=== PATIENT | female | born 1945 | race Caucasian/White ===

== ENCOUNTER 2018-01-14 11:49 | Emergency (ER) | payer MEDICARE, BC ==
[2018-01-14] MEDS ORDERED: Sodium Chloride 0.9% 1,000 ML IV SCH (12:00)
--- NOTE | 2018-01-14 12:06 | EDM.PDOC ---
ED HPI GENERAL MEDICAL PROBLEM - General Stated Complaint: LIGHTHEADED Time Seen by Provider: 01/14/18 11:49 Source of Information: Reports: Patient History Limitations: Reports: No Limitations - History of Present Illness INITIAL COMMENTS - FREE TEXT/NARRATIVE: c/o near syncope pt with L TKR 1w ago, went to PT today, became diaphoretic and lightheaded, put in a w/c and felt better, went to bathroom, became diaphoretic again and brought here SBP 80 as per PT pt states she has been taking her BP med daily rather than 4x/mo as usual PCP Dr Andrews for past 30y feeling fine now, no n/v, no cp, no sob has cool compress on forehead, skin dry ED ROS GENERAL - Review of Systems Review Of Systems: See Below Constitutional: Reports: Weakness, Diaphoresis HEENT: Reports: No Symptoms Respiratory: Reports: No Symptoms. Denies: Shortness of Breath Cardiovascular: Reports: No Symptoms. Denies: Chest Pain Endocrine: Reports: No Symptoms GI/Abdominal: Reports: No Symptoms. Denies: Abdominal Pain, Diarrhea, Nausea, Vomiting : Reports: No Symptoms Musculoskeletal: Reports: No Symptoms Skin: Reports: No Symptoms Neurological: Reports: Other (lightheaded. dizzy) Psychiatric: Reports: No Symptoms Hematologic/Lymphatic: Reports: No Symptoms Immunologic: Reports: No Symptoms - Physical Exam Exam: See Below Exam Limited By: No Limitations General Appearance: Alert, WD/WN, No Apparent Distress, Other (sitting in w/c, alert, pleasant, NAD) Ears: Normal External Exam Nose: Normal Inspection, Normal Mucosa, No Blood Throat/Mouth: Normal Inspection, Normal Lips Head Exam: Atraumatic, Normocephalic Neck: Normal Inspection, Supple, Non-Tender, Full Range of Motion Respiratory/Chest: No Respiratory Distress, Lungs Clear, Normal Breath Sounds, No Accessory Muscle Use, Chest Non-Tender Cardiovascular: Regular Rate, Rhythm, No Edema, No Gallop, No JVD, No Rub, Other (2/6 RAMON at LSB, quiet precordium) GI/Abdominal: Soft, Non-Tender, No Distention Neuro Exam (Abbreviated): Alert, Oriented, CN II-XII Intact, Normal Cognition, No Motor/Sensory Deficits Back Exam: Normal Inspection, Full Range of Motion, NT Extremities: Normal Inspection, Normal Range of Motion, Non-Tender, No Pedal Edema, Normal Capillary Refill Psychiatric: Normal Affect Skin Exam: Warm, Dry, Intact, Normal Color, No Rash, Other (dec'd turgor UEs, no tenting) Course - Orders/Labs/Meds Orders: Active Orders 24 hr Category Date Time Status UA W/MICROSCOPIC [URIN] Stat Lab 01/14/18 13:50 Received Sodium Chloride 0.9% [Normal Saline] 1,000 ml Med 01/14/18 12:00 Active IV ASDIRECTED EKG 12 Lead [EK] Routine Ther 01/14/18 11:59 Ordered Medication Orders Sodium Chloride (Normal Saline) 1,000 mls @ 999 mls/hr IV ASDIRECTED BRIGIDA Labs: Laboratory Tests 01/14/18 01/14/18 01/14/18 Range/Units 12:15 12:15 12:15 WBC 9.4 (4.5-12.0) X10-3/uL RBC 4.36 (3.23-5.20) x10(6)uL Hgb 11.5 (11.5-15.5) g/dL Hct 35.3 (30.0-51.3) % MCV 80.9 (80-96) fL MCH 26.4 L (27.7-33.6) pg MCHC 32.7 (32.2-35.4) g/dL RDW 14.1 (11.5-15.5) % Plt Count 518 H (125-369) X10(3)uL MPV 7.7 (7.4-10.4) fL Neut % (Auto) 73.2 (46-82) % Lymph % (Auto) 17.2 (13-37) % [place] % (Auto) 7.0 (4-12) % Eos % (Auto) 2 (1.0-5.0) % Baso % (Auto) 1 (0-2) % Neut # (Auto) 6.8 (1.6-8.3) # Lymph # (Auto) 1.6 (0.6-5.0) # [place] # (Auto) 0.7 (0.0-1.3) # Eos # (Auto) 0.2 (0.0-0.8) # Baso # (Auto) 0.1 (0.0-0.2) # Sodium 135 (135-145) mmol/L Potassium 3.7 (3.5-5.3) mmol/L Chloride 98 L (100-110) mmol/L Carbon Dioxide 27 (21-32) mmol/L BUN 15 (7-18) mg/dL Creatinine 1.3 H (0.55-1.02) mg/dL Est Cr Clr Drug Dosing TNP Estimated GFR (MDRD) 40 L (>60) BUN/Creatinine Ratio 11.5 (9-20) Glucose 136 H (80-116) mg/dL Calcium 8.7 (8.6-10.2) mg/dL Total Bilirubin 0.7 (0.1-1.3) mg/dL AST 60 H (5-25) IU/L ALT 63 H (12-36) U/L Alkaline Phosphatase 109 (56-112) IU/L Troponin I < 0.017 L (<0.017-0.056) ng/mL C-Reactive Protein 2.8 H* (0.5-0.9) mg/dL Total Protein 8.0 (6.0-8.0) g/dL Albumin 3.3 (3.2-4.6) g/dL Globulin 4.7 g/dL Albumin/Globulin Ratio 0.7 Meds: Medications Generic Name Dose Route Start Last Admin Trade Name Freq PRN Reason Stop Dose Admin Sodium Chloride 1,000 mls @ 999 mls/hr 01/14/18 12:00 Normal Saline IV ASDIRECTED BRIGIDA - Re-Assessments/Exams Free Text/Narrative Re-Assessment/Exam: 01/14/18 14:12 pt has been on lisinopril 20 mg 1/2 tab for years but rarely takes it daily, she was given HCTZ 25 mg daily as well when she went in for her preop for her knee creat 1.3 today, no comparison is feeling fine after 1 liter of fluids at home, comes to hospital for PT for her knee pt currently splits lisinopril, will also have her split the HCTZ 25 mg and f/u with PCP in 3-4 days Departure - Departure Time of Disposition: 14:14 Disposition: Home, Self-Care 01 Condition: Good Clinical Impression: Hypotension, Elevated serum creatinine - Discharge Information *PRESCRIPTION DRUG MONITORING PROGRAM REVIEWED*: Not Applicable *COPY OF PRESCRIPTION DRUG MONITORING REPORT IN PATIENT LITA: Not Applicable Instructions: Hypotension Referrals: Omar Alcala MD [Primary Care Provider] - Additional Instructions: Continue current meds. However, take 1/2 tab of the HCTZ 25 mg daily (rather than a whole tab). Continue rehab. See Dr Andrews in 3-4 days. Follow up with surgeon as scheduled. Call your Physician or Return to Emergency Department if: * Your condition worsens in any way. * You develop fever greater than 100.4. * You have vomitting that does not stop with medications. * You have pain that is not controlled with medications. - My Orders Last 24 Hours: My Active Orders 01/14/18 11:59 EKG 12 Lead [EK] Routine 01/14/18 12:00 Sodium Chloride 0.9% [Normal Saline] 1,000 ml IV ASDIRECTED 01/14/18 13:50 UA W/MICROSCOPIC [URIN] Stat - Assessment/Plan Last 24 Hours: My Active Orders 01/14/18 11:59 EKG 12 Lead [EK] Routine 01/14/18 12:00 Sodium Chloride 0.9% [Normal Saline] 1,000 ml IV ASDIRECTED 01/14/18 13:50 UA W/MICROSCOPIC [URIN] Stat
== END 2018-01-14 14:30 | disposition home or self-care (01) ==
LOC: FB.ED 11:49
DX: I95.9 Hypotension, unspecified (principal); R79.89 Other specified abnormal findings of blood chemistry
CPT/HCPCS: 36415; 80053; 81001; 84484; 85025; 86140; 93005; 96360; 99285; J7030

== ENCOUNTER 2019-04-15 15:05 | Emergency (ER) | payer MEDICARE, BC ==
[2019-04-15] MEDS ORDERED: FLU Vacc QS2019-20(6MOS+)/PF 60 MCG/0.5 ML SYRINGE IM ONE (16:00)
--- NOTE | 2019-04-15 16:14 | EDM.PDOC ---
ED HPI GENERAL MEDICAL PROBLEM - General Chief Complaint: Gastrointestinal Problem Stated Complaint: HYPERVOLEMIC, VOMITTING Time Seen by Provider: 04/15/19 16:00 Source of Information: Reports: Patient History Limitations: Reports: No Limitations - History of Present Illness INITIAL COMMENTS - FREE TEXT/NARRATIVE: 74-year-old female who had onset of diarrhea on 04/11/2019. She has really had no discomfort. She has had no weakness or dizziness. She has had about 5-6 diarrhea stools per day. They have been Aleisha. She has had really no abdominal cramping or nausea associated with these episodes of diarrhea. She did take Imodium for her diarrhea today and she presented to the walk-in clinic today for evaluation because she is kneeling on going out of town and back to [place] area were she has an apartment. While she was in the walk-in clinic, she used a facemask is to begin to feel stifled with this and then begin to feel some nausea and lightheadedness and she had multiple episodes of vomiting at that point that was somewhat bilious and was noted by the walk-in clinic staff to have her sugar in the 90 systolic range and they brought her over here to the emergency department for evaluation. By the time she arrives here, she states she feels mostly back to normal. She has no more nausea. Her blood pressure is in the 110 systolic range. Feel somewhat thirsty and she is asking for crackers. She does have some pain in her right shoulder that she states she has had ongoing for quite some time and beginning in the fall of this year she has had fairly continual pain in her right shoulder that seems to be worse with certain positions and she is currently rating the pain as about 7-8/10. It is an aching and throbbing pain and it is no different than she normally has only just a bit worse uncomfortable because of the position that she is in because she is lying flat. No fevers or chills. No dysuria or hematuria. No cough or nasal congestion. No sore throat. There are no other associated signs or symptoms. There are no other modifying factors. Onset: Other (Ongoing for the past) Duration: Constant Location: Reports: Upper Extremity, Right (Shoulder) Quality: Reports: Ache Severity: Moderate Improves with: Reports: Rest, Other (Relieved in certain positions.) Worsens with: Reports: Other (Palpation. Certain positions.), Movement Context: Reports: Other (As above) Associated Symptoms: Reports: No Other Symptoms (Except as above) Treatments SIMONIZER: Reports: Other Medication(s) (Imodium 2 capsules earlier today) Right Shoulder Pain Score (Numeric/FACES): 4 - Related Data Allergies Allergy/AdvReac Type Severity Reaction Status Date / Time Bleach (Sodium Hypochlorite) Allergy Rash Verified 04/15/19 15:40 latex Allergy Rash Verified 04/15/19 15:40 Home Meds: Home Meds Lisinopril 10 mg PO DAILY 01/14/18 [History] hydroCHLOROthiazide [Hydrochlorothiazide] 25 mg PO DAILY 01/14/18 [History] Past Medical History HEENT History: Reports: Other (See Below) Other HEENT History: 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 Cardiovascular History: Reports: Hypertension - Infectious Disease History Infectious Disease History: Reports: Chicken Pox - Past Surgical History HEENT Surgical History: Reports: Eye Surgery, Oral Surgery, Tonsillectomy GI Surgical History: Reports: Bariatric Procedure (Gastric bypass), Cholecystectomy, Colonoscopy Female Surgical History: Reports: Hysterectomy Musculoskeletal Surgical History: Reports: Knee Replacement (Left) Social & Family History - Tobacco Use Smoking Status *Q: Never Smoker Second Hand Smoke Exposure: No - Caffeine Use Caffeine Use: Reports: Coffee - Alcohol Use Days Per Week of Alcohol Use: 1 Number of Drinks Per Day: 0 Total Drinks Per Week: 0 Alcohol Use Frequency: Weekly - Recreational Drug Use Recreational Drug Use: No - Living Situation & Occupation Living situation: Reports: Occupation: Retired ED ROS GENERAL - Review of Systems Review Of Systems: See Below Constitutional: Reports: Malaise HEENT: Reports: Other (Somewhat dry mouth) Respiratory: Reports: No Symptoms Cardiovascular: Reports: Lightheadedness (After episode today while she was in the walk-in clinic area). Denies: Chest Pain Endocrine: Reports: No Symptoms GI/Abdominal: Reports: Diarrhea, Vomiting : Reports: No Symptoms Musculoskeletal: Reports: No Symptoms Skin: Reports: No Symptoms Neurological: Reports: No Symptoms, Other (Near syncope with this episode today) Hematologic/Lymphatic: Reports: No Symptoms Immunologic: Reports: No Symptoms ED EXAM, GENERAL - Physical Exam Exam: See Below Exam Limited By: No Limitations General Appearance: Alert, No Apparent Distress, Obese Eye Exam: Bilateral Eye: EOMI, Normal Inspection, PERRL Ears: Normal External Exam, Hearing Grossly Normal Ear Exam: Bilateral Ear: Auricle Normal Nose: Normal Inspection, Normal Mucosa, No Blood Throat/Mouth: Normal Voice, No Airway Compromise, Other (Dry mucous membranes. No posterior pharyngeal erythema.) Head: Atraumatic, Normocephalic Neck: Normal Inspection, Supple, Non-Tender, Full Range of Motion Respiratory/Chest: No Respiratory Distress, Lungs Clear, Normal Breath Sounds, No Accessory Muscle Use, Chest Non-Tender Cardiovascular: Normal Peripheral Pulses, Regular Rate, Rhythm, No JVD, No Murmur Peripheral Pulses: 2+: Radial (L), Radial (R), Dorsalis Pedis (L), Dorsalis Pedis (R) GI/Abdominal: Normal Bowel Sounds, Soft, Non-Tender, No Mass Back Exam: Normal Inspection. No: CVA Tenderness (R), CVA Tenderness (L) Extremities: Normal Inspection, Normal Range of Motion, Non-Tender, No Pedal Edema, Normal Capillary Refill Neurological: Alert, Oriented, CN II-XII Intact, Normal Cognition, No Motor/ Sensory Deficits Skin Exam: Warm, Dry, Intact, Normal Color, No Rash Course - Vital Signs Last Recorded V/S: Last Vital Signs Temp 36.1 C 04/15/19 15:40 Pulse 66 04/15/19 15:40 Resp 18 04/15/19 15:40 BP 100/55 L 04/15/19 15:40 Pulse Ox 97 04/15/19 15:40 Orthostatic Blood Pressure [ 138/71 Standing] Orthostatic Blood Pressure [ 130/69 Sitting] Orthostatic Blood Pressure [ 152/71 Supine] - Orders/Labs/Meds Orders: Active Orders 24 hr Category Date Time Status Influenza Vaccine Charge [RC] .DISCHARGE Care 04/15/19 15:51 Active Orthostatic Vital Signs [RC] ONETIME Care 04/15/19 17:09 Active Peripheral IV Insertion Adult [OM.PC] Routine Oth 04/15/19 16:21 Ordered Labs: Laboratory Tests 04/15/19 04/15/19 Range/Units 16:45 16:45 WBC 12.0 (4.5-12.0) X10-3/uL RBC 4.83 (3.23-5.20) x10(6)uL Hgb 12.4 (11.5-15.5) g/dL Hct 38.3 (30.0-51.3) % MCV 79.3 L (80-96) fL MCH 25.8 L (27.7-33.6) pg MCHC 32.5 (32.2-35.4) g/dL RDW 13.9 (11.5-15.5) % Plt Count 377 H (125-369) X10(3)uL MPV 7.7 (7.4-10.4) fL Add Manual Diff Yes Neutrophils % (Manual) 90 H (46-82) % Lymphocytes % (Manual) 6 L (13-37) % Monocytes % (Manual) 3 L (4-12) % Eosinophils % (Manual) 1 (0-5) % Sodium 139 (135-145) mmol/L Potassium 3.8 (3.5-5.3) mmol/L Chloride 102 (100-110) mmol/L Carbon Dioxide 28 (21-32) mmol/L BUN 14 (7-18) mg/dL Creatinine 1.4 H (0.55-1.02) mg/dL Est Cr Clr Drug Dosing 28.31 mL/min Estimated GFR (MDRD) 37 L (>60) BUN/Creatinine Ratio 10.0 (9-20) Glucose 111 (80-116) mg/dL Calcium 8.7 (8.6-10.2) mg/dL Magnesium 1.9 (1.8-2.5) mg/dL Total Bilirubin 0.4 (0.1-1.3) mg/dL AST 18 D (5-25) IU/L ALT 17 D (12-36) U/L Alkaline Phosphatase 96 (56-112) IU/L Total Protein 7.7 (6.0-8.0) g/dL Albumin 3.5 (3.2-4.6) g/dL Globulin 4.2 g/dL Albumin/Globulin Ratio 0.8 Meds: Medications Discontinued Medications Generic Name Dose Route Start Last Admin Trade Name Freq PRN Reason Stop Dose Admin Acetaminophen 1,000 mg 04/15/19 16:21 04/15/19 16:35 Tylenol Extra Strength PO 04/15/19 16:22 1,000 mg ONETIME ONE Administration Sodium Chloride 1,000 mls @ 999 mls/hr 04/15/19 16:21 04/15/19 16:29 Normal Saline IV 04/15/19 17:21 999 mls/hr .BOLUS ONE Administration Sodium Chloride 1,000 mls @ 150 mls/hr 04/15/19 16:30 Normal Saline IV ASDIRECTED [facility] Influenza Virus Vaccine 60 mcg 04/15/19 16:00 04/15/19 19:37 Fluzone Quad [id number] Syringe IM 04/15/19 16:01 Not Given .ONCE ONE Sodium Chloride 10 ml 04/15/19 16:21 Saline Flush FLUSH ASDIRECTED PRN Keep Vein Open - Re-Assessments/Exams Free Text/Narrative Re-Assessment/Exam: 04/15/19 18:00: Patient's orthostatic vital signs were normal. Patient has received 1 L of normal saline IV. Patient with no further diarrhea. Her lab tests are reassuring. She is thirsty and would like some crackers. I will plan on giving the patient a PO challenge and if she tolerates this, she will be discharged. 04/15/19 18:50: Patient has tolerated liquids and the crackers well. She has no nausea. She still has had no further stools. She feels much improved. I suspect that she had a vagal episode in the walk-in clinic and that was the cause of her transient hypotension and vomiting. The patient is stable and ready for discharge. Departure - Departure Time of Disposition: 19:00 Disposition: Home, Self-Care 01 Condition: Good (Improved) Clinical Impression: Dehydration, Vasovagal episode Diarrhea Qualifiers: Diarrhea type: unspecified type Qualified Code(s): R19.7 - Diarrhea, unspecified - Discharge Information Instructions: Dehydration, Adult, [id number], Diarrhea, Adult, [id number] Referrals: Omar Alcala MD [Primary Care Provider] - Forms: ED Department Discharge Additional Instructions: Your blood tests were reassuring and essentially unchanged from previous. You did appear to be somewhat dehydrated and we corrected this with the IV fluids. The episode of low blood pressure and vomiting that you had in the walk-in clinic was most probably secondary to what is called a vasovagal episode or a near pass out spell did to you wearing the mask. You should rest. Drink plenty of fluids. Avoid milk for the next 2-3 days. Take probiotics ([id number]) daily for about the next week. You may take treats loose stool up to 4 doses in the 24 hour period. You may take Tylenol 1000 mg by mouth every 6 hours as needed for pain. Activity emergency department for unrelenting vomiting, high fever, worsening diarrhea, inability to take liquids, weakness or dizziness or any other concerning sign or symptom. Sepsis Event Note - Evaluation Sepsis Screening Result: No Definite Risk - Focused Exam Vital Signs: Vital Signs Temp Pulse Resp BP Pulse Ox 04/15/19 15:40 36.1 C 66 18 100/55 L 97 Date Exam was Performed: 04/15/19 Time Exam was Performed: 23:38 - My Orders Last 24 Hours: My Active Orders 04/15/19 15:51 Influenza Vaccine Charge [RC] .DISCHARGE 04/15/19 16:21 Peripheral IV Insertion Adult [OM.PC] Routine 04/15/19 17:09 Orthostatic Vital Signs [RC] ONETIME - Assessment/Plan Last 24 Hours: My Active Orders 04/15/19 15:51 Influenza Vaccine Charge [RC] .DISCHARGE 04/15/19 16:21 Peripheral IV Insertion Adult [OM.PC] Routine 04/15/19 17:09 Orthostatic Vital Signs [RC] ONETIME
[2019-04-15] MEDS ORDERED: Sodium Chloride 0.9% 1,000 ML IV ONE (16:21)
[2019-04-15] MEDS ORDERED: Sodium Chloride 0.9% 10 ML Syringe FLUSH PRN (16:21)
[2019-04-15] MEDS ORDERED: Acetaminophen 500 MG Tab PO ONE (16:21)
[2019-04-15] MEDS ORDERED: Sodium Chloride 0.9% 1,000 ML IV SCH (16:30)
== END 2019-04-15 19:28 | disposition home or self-care (01) ==
LOC: FB.ED 15:05
DX: E86.0 Dehydration (principal); R19.7 Diarrhea, unspecified; I10 Essential (primary) hypertension; Z91.040 Latex allergy status; Z86.73 Personal history of transient ischemic attack (TIA), and cerebral infarction without residual deficits; Z79.899 Other long term (current) drug therapy
CPT/HCPCS: 36415; 80053; 83735; 85025; 96360; 99284; A9270; J7030